=== PATIENT | male | born 1955 | race Caucasian/White ===

== ENCOUNTER → 2022-11-16 13:12 | Outpatient (CLI) | payer MEDICARE, SELFPAY ==
--- NOTE | 2022-11-16 | DI.RAD.S_ITS ---
PROCEDURE: XR LUMBAR SPINE 6V W BENDING INDICATIONS: Vertebrogenic low back pain TECHNIQUE: 5 views of the lumbar spine acquired, including flexion and extension views. COMPARISON: None. FINDINGS: Bones: 5 nonrib-bearing vertebrae are present. There is 7 mm retrolisthesis of L2 on L3, 5 mm retrolisthesis of L3 on L4 and 5 mm anterolisthesis of L4 on L5. Degenerative endplate changes, loss of disc height and bilateral facet hypertrophic changes are noted throughout lumbar spine. Chronic appearing superior endplate anterior wedge compression deformity at L1 level is seen containing a Schmorl's node. There is up to 25 % loss of L1 vertebral body height anteriorly. No suspicious bony lesions. Soft tissues: Overlying bowel gas pattern is normal. No suspicious soft tissue calcifications. Flexion/extension: There is decreased range of motion on lateral flexion and extension views with suggestion of abnormal motion noted at L4-5 level seen on lateral flexion and extension views. IMPRESSION: 1. Grade 1 spondylolisthesis at L2-3, L3-4 and L4-5 levels as above. Degenerative disc disease throughout lumbar spine. No acute compression fracture. Chronic appearing superior endplate compression deformity at L1 level as above. 2. Decreased range of motion on lateral flexion and extension views with suggestion of abnormal motion noted at L4-5 level. Dictated by: Oneil Villarreal M.D. on 11/16/2022 at 16:32 Approved by: Oneil Villarreal M.D. on 11/16/2022 at 16:34
== END ==
PROVIDERS: Referring Provider Family Medicine; Visit Provider Family Medicine
DX: M54.51 Vertebrogenic low back pain (principal); M43.16 Spondylolisthesis, lumbar region; M51.36 Other intervertebral disc degeneration, lumbar region
CPT/HCPCS: 72114

== ENCOUNTER → 2022-12-25 15:01 | Outpatient (CLI) | payer MEDICARE, SELFPAY ==
--- NOTE | 2022-12-25 | DI.ECHO.S_ITS ---
[facility] +---------+ : : [address] : : : : [id number] : : : : Phone: [phone] Echocardiogram Report + + :Name: RADHA CARTER Study Date: 12/25/2022 Height: 72 in : :[facility] ReadingLocation: Weight: 195 lb : : Gender: Male BSA: 2.1 m2 : :: 1955 Age: 67 yrs BP: 145/81 mmHg: :Reason For Study: Dyspnea : :Ordering Physician: VALERY, : :PARESH Jack Performed By: Erinn Monroe : :Referring: PARESH RASMUSSEN : + + Interpretation Summary The ejection fraction is estimated to be 60-65%. The right ventricle is mildly dilated. There is trace tricuspid regurgitation. Pulmonary artery pressures cannot be estimated because of the lack of a measurable TR jet velocity. Procedure: A two-dimensional transthoracic echocardiogram with color flow and Doppler was performed. The study quality was technically adequate. There is no prior echocardiogram noted for this patient. The patient was in normal sinus rhythm during the exam. Left Ventricle: The left ventricle is normal in size. The ejection fraction is estimated to be 60-65%. Left ventricular wall motion is normal. Diastolic parameters suggest a relaxation abnormality of the left ventricle, consistent with probable normal filling pressures. Right Ventricle: The right ventricle is mildly dilated. The right ventricular systolic function is normal. Atria: The left atrial size is normal. The right atrium is mild to moderately dilated. There is no Doppler evidence for an interatrial shunt. Mitral Valve: The mitral valve is normal. There is no mitral valve stenosis. There is no mitral regurgitation noted. Aortic Valve: The aortic valve is trileaflet. The aortic valve opens well. There is no aortic valve stenosis. No aortic regurgitation is present. Tricuspid Valve: The tricuspid valve is normal. There is no tricuspid stenosis. There is trace tricuspid regurgitation. Pulmonary artery pressures cannot be estimated because of the lack of a measurable TR jet velocity. Pulmonic Valve: The pulmonic valve leaflets are thin and pliable; valve motion is normal. There is no pulmonic valvular stenosis. There is no pulmonic valvular regurgitation. Great Vessels: The aortic root is normal size. The ascending aorta is normal in size. The pulmonary artery is normal size. The IVC is of normal diameter and collapses greater than 50% with a sniff. This suggests a low right atrial pressure of 3 mm Hg. Pericardium/ Pleura There is no pericardial effusion. There is no pleural effusion. MMode/2D Measurements & Calculations LVIDd: 5.1 cm LVOT diam: 2.0 cm LVIDs: 2.9 cm Ao root diam: 3.3 cm FS: 43.1 % asc Aorta Diam: 3.3 cm IVSd: 1.1 cm LVPWd: 1.0 cm LV delgado. diameter/BSA (cm/m^2): 2.4 LV sys. diameter/BSA (cm/m^2): 1.4 LA A2 area: 19.9 cm2 RA long axis: 5.4 cm LA A4 area: 18.7 cm2 RA area: 20.4 cm2 LA length (vol): 5.3 cm RA vol: 65.8 ml LA vol: 59.4 ml RA : 31.2 ml/m2 LA vol index: 28.2 ml/m2 RVD1 (basal): 4.8 cm LVLs ap4: 5.9 cm LVLd ap2: 7.5 cm TAPSE_phl: 3.6 cm LVLs ap2: 6.3 cm Doppler Measurements & Calculations Ao V2 max: 168.0 cm/sec LVOT Max Jalen: 131.0 cm/sec Ao V2 mean: 115.0 cm/sec LV V1 max P.9 mmHg Ao max P.0 mmHg LV V1 VTI: 24.8 cm Ao mean P.0 mmHg FORREST(I,D): 2.1 cm2 Ao V2 VTI: 37.0 cm FORREST(V,D): 2.4 cm2 sev ratio: 0.67 FORREST indexed to BSA (cm^2/m^2): 1.00 MV E max jalen: 77.6 cm/sec PA V2 max: 113.0 cm/sec MV A max jalen: 72.4 cm/sec PA V2 mean: 76.7 cm/sec MV E/A: 1.1 PA mean P.0 mmHg Med Peak E' Jalen: 8.7 cm/sec PA pr(Accel): 17.3 mmHg E/E' med: 8.9 Lat Peak E' Jalen: 10.1 cm/sec E/E' lat: 7.7 E/e' average: 8.3 MV dec time: 0.28 sec SV(LVOT): 77.9 ml AV VR_phl: 0.78 FORREST(VTI)/BSA_phl: 1.0 MV P1/2t-pr_phl: 82.0 msec Reading Physician:08:53 AM
== END ==
PROVIDERS: PCP Family Medicine; Referring Provider Family Medicine; Visit Provider Family Medicine
DX: R06.09 Other forms of dyspnea (principal)
CPT/HCPCS: 93306

== ENCOUNTER 2024-07-12 21:20 | Inpatient (IN) | payer MEDICARE, SELFPAY ==
[2024-07-12 21:29] VITALS: BP 142/79; PULSE 73; RESP 18; TEMP 36.3; O2SAT 97; BMI 27.1
--- NOTE | 2024-07-12 21:40 | DI.CT.S_ITS ---
PROCEDURE: CT HEAD/BRAIN WO CON INDICATIONS: Positive BE-FAST, Stroke symptoms TECHNIQUE: Noncontrast 4.5 mm thick angled axial sections acquired from the foramen magnum to the vertex, with coronal and sagittal reformats. For radiation dose reduction, the following was used: automated exposure control, adjustment of mA and/or kV according to patient size. COMPARISON: [facility], CT, CT ANGIO HEAD AND NECK, 07/12/2024, 21:50. FINDINGS: Image quality: Diagnostic. CSF spaces: Basal cisterns are patent. No extra-axial fluid collections. The ventricles are symmetric in size and shape. Brain: No intracranial bleeds or masses. There is cerebral volume loss for age, with resultant ventricular and sulcal prominence. There are periventricular and deep white matter chronic small vessel ischemic changes. There is intracranial internal carotid artery atherosclerosis. Skull and face: Calvarium and visualized facial bones appear intact, without suspicious lesions. Sinuses: Visualized sinuses and mastoids are clear. IMPRESSION: No acute intracranial pathology. Dictated by: Tulio Galvan M.D. on 07/12/2024 at 22:10 Approved by: Tulio Galvan M.D. on 07/12/2024 at 22:16
--- NOTE | 2024-07-12 21:40 | EKG_ITS ---
[facility] [address] [address] Test Date: 2024-07-12 Pat Name: Sergio Beck Department: [facility] Room: Gender: Male Web Application Developer: ALLI JIMENEZ : 1955 Requested By: Order Number: [id number] Reading MD: Pepe Byrnes MD Measurements Intervals [place] Rate: 70 P: -3 IL: 126 QRS: 82 QRSD: 96 T: 74 QT: 412 QTc: 444 Interpretive Statements Normal sinus rhythm Electronically Signed On 07-13-2024 7:41:03 PST by Pepe Byrnes MD
--- NOTE | 2024-07-12 21:40 | DI.RAD.S_ITS ---
PROCEDURE: XR CHEST 1V INDICATIONS: Possible stroke TECHNIQUE: One view of the chest was acquired. COMPARISON: None. FINDINGS: Surgical changes and devices: None. Lungs and pleura: Mild bibasilar subsegmental atelectasis.. No pleural effusions or pneumothorax. Mediastinum: Mediastinal contours appear normal. Heart size is normal. Bones and chest wall: No suspicious bony lesions. Overlying soft tissues appear unremarkable. IMPRESSION: Mild bibasilar subsegmental atelectasis. Otherwise, no acute cardiothoracic process. Dictated by: Tulio Galvan M.D. on 07/12/2024 at 22:41 Approved by: Tulio Galvan M.D. on 07/12/2024 at 22:41
--- NOTE | 2024-07-12 21:46 | DI.CT.S_ITS ---
PROCEDURE: CT ANGIO HEAD AND NECK INDICATIONS: trouble finding words 3 hours ago TECHNIQUE: After the administration of intravenous contrast, 1 mm thick sections acquired from the aortic arch through the [place]. 3-dimensional tymwgsb-mmochsxlc-yrbmuixszh (MIP) and/or volume rendering reformats were acquired of the central intracranial vasculature and neck separately. For radiation dose reduction, the following was used: automated exposure control, adjustment of mA and/or kV according to patient size. COMPARISON: None. FINDINGS: Image quality: Diagnostic. HEAD CT ANGIOGRAPHY: Anterior circulation: Intracranial internal carotid arteries are normal in size and flow. The flow within the paired anterior cerebral arteries is normal and symmetric. The flow within the middle cerebral arteries is normal and symmetric. The anterior communicating artery is seen. No aneurysms are seen. Posterior circulation: Visualized portions of the vertebral arteries demonstrate normal caliber, and join to form a normal appearing basilar artery. Flow within the posterior cerebral arteries is normal and symmetric. No aneurysms are seen. NECK CT ANGIOGRAPHY: Carotid system: The great vessels demonstrate a conventional anatomy as they arise from the aortic arch. The origins of the common carotid arteries appear patent. The common carotid arteries demonstrate normal caliber and courses. The bifurcation regions are both widely patent. The internal carotid arteries demonstrate normal calibers and courses. Posterior circulation: The origins of the vertebral arteries both appear widely patent. The more superior extracranial portions of both vertebral arteries also demonstrate normal courses and calibers. They join to form a normal appearing basilar artery. Soft tissues: Visualized neck soft tissues demonstrate no suspicious abnormalities. Mild centrilobular emphysema. Left upper lobe 1 cm calcified granuloma, likely secondary to prior granulomatous disease or infection. Bones: No suspicious bony lesions. Visualized cervical spine appears normally aligned. IMPRESSION: No large vessel occlusion, dissection, or aneurysm in the visualized head and neck arterial vasculature. 2 unsuccessful phone attempts were made to contact the ordering provider for result notification. Any quantitative measurements of stenosis were performed using NASCET criteria. Dictated by: Tulio Galvan M.D. on 07/12/2024 at 22:16 Approved by: Tulio Galvan M.D. on 07/12/2024 at 22:21
[2024-07-12 21:58] LABS: Add Manual Diff / Slide Review NO; Basophils Absolute Auto 0 /uL (0-100); Basophils Percent Auto 1.1 % (0-2); Eosinophils Absolute Auto 100 /uL (0-450); Hematocrit 38.6 % (41-53); Hemoglobin 13.9 g/dL (13.5-17.5); Lymphocytes Absolute Auto 1300 /uL (1100-4500); Lymphocytes Percent Auto 29.3 % (25-40); Mean Corpuscular HGB Conc 35.9 % (30-36); Mean Corpuscular Hemoglobin 34.1 PG (26-34); Mean Corpuscular Volume 95.1 fL (80-100); Monocytes Absolute Auto 400 /uL (0-900); Monocytes Percent Auto 9.7 % (3-14); Neutrophils Absolute Auto 2500 /uL (1500-7000); Neutrophils Percent Auto 57.9 % (50-75); Platelet Count 252 X10^3/uL (150-400); Red Blood Cell Count 4.06 X10^6/uL (4.5-5.9); Red Cell Distribution Width 13.2 % (11.6-14.8); White Blood Cell Count 4.3 X10^3/uL (4.5-11.0)
[2024-07-12 22:08] LABS: Prothrombin Time 11.2 SECONDS (9.4-12.5)
[2024-07-12 22:11] LABS: PTT Partial Thromboplastin Tim 37 SECONDS (25.1-36.5)
[2024-07-12 22:13] LABS: Alanine Aminotransferase 30 IU/L (<50); Albumin 4.3 g/dL (3.5-5.0); Albumin Globulin Ratio 1.8 (1.0-2.8); Alkaline Phosphatase 96 U/L (38-126); Aspartate Aminotransferase 28 IU/L (17-59); BUN Creatinine Ratio 22.7 (6-22); Bilirubin Total 0.6 mg/dL (0.2-1.3); Blood Urea Nitrogen 15 mg/dL (9-20); Calcium 9.2 mg/dL (8.4-10.2); Carbon Dioxide 24 mmol/L (22-32); Chloride 92 mmol/L (98-107); Creatine Kinase 86 U/L (55-170); Estimated Glomerular Filt Rate > 60 mL/min (>60); Globulin 2.4 g/dL (1.7-4.1); Glucose 170 mg/dL (80-110); HEMOLYSIS < 15 (0-50); Magnesium 1.5 mg/dL (1.6-2.3); Potassium 4.4 mmol/L (3.4-5.1); Sodium 125 mmol/L (137-145); Total Protein 6.7 g/dL (6.3-8.2)
--- NOTE | 2024-07-12 22:13 | PC.NURSE ---
Ambulatory to restroom without difficulty or assistance. Unable to provide urine sample at this time. Water provided and taking without difficulty for swallow screening.
[2024-07-12 22:24] LABS: Troponin I < 0.012 ng/mL (0.01-0.034)
[2024-07-12 22:29] VITALS: BP 138/82; PULSE 61; RESP 22; O2SAT 97
[2024-07-12 22:30] VITALS: BP 133/77; PULSE 60; RESP 19; O2SAT 97
[2024-07-12 23:00] VITALS: BP 126/75; PULSE 63; RESP 19; O2SAT 96
--- NOTE | 2024-07-12 23:16 | ED.NEUROSD ---
HPI - Neuro Symptoms/Deficit General Chief Complaint: Neuro Symptoms/Deficit Stated Complaint: symptoms like tia Time Seen by Provider: 07/12/24 22:36 Source: patient and family Mode of arrival: Ambulatory History of Present Illness HPI Narrative: 69-year-old male right-handed had suspected TIA 8 years ago with inability to read lasting about 15 minutes for which he was admitted overnight in [facility] and recalls being discharged on aspirin which was eventually discontinued, no blood thinner medications taken, last known well 6:00 p.m. last night with his when they were out to watch the sunset on [facility], he was looking at his phone and suddenly seemed to be unable to comprehend the meaning of the words, was able to speak, unable to read with comprehension problem, no visual blurring or double vision or spots in his field of vision. No focal numbness to face arm or leg. No focal weakness to face arm or leg. Symptoms were intermittent and lasted about 30 minutes and then resolved. They took the [place] here for further evaluation. No subsequent recurrent similar symptoms or new neurological symptoms. On Anticoagulants: No Related Data Allergies Allergy/AdvReac Type Severity Reaction Status Date / Time No Known Drug Allergies Allergy Verified 07/12/24 21:29 Review of Systems Hematologic/Lymphatic On Anticoagulants: No Patient History Social History Smoking Status: Never smoker Smoking Status: Never smoker Exam Narrative Exam Narrative: GENERAL: Well-developed patient, in mild distress. HEAD: Atraumatic. Normocephalic. EYES: Pupils equal round and reactive. Extraocular motions intact. No scleral icterus. No injection or drainage. ENT: Nose without bleeding, purulent drainage. Throat without erythema, tonsillar hypertrophy or exudate. Airway patent. NECK: Trachea midline. Non tender CARDIOVASCULAR: Regular rate and rhythm without murmurs, gallops, or rubs. RESPIRATORY: Clear to auscultation. Breath sounds equal bilaterally. No wheezes, rales, or rhonchi. GASTROINTESTINAL: Abdomen soft, non-tender, nondistended. EXTREMITIES: No edema or joint tenderness. BACK: Nontender without deformity or crepitance. No flank tenderness. NEURO: AOx3. Pupils equal round and reactive to light, extraocular muscles intact, no diplopia on vertical and horizontal buenrostro, no visual field deficits obvious. No facial droop. Speech swallow shoulder shrug unremarkable, extrudes and deviates tongue without difficulty. Motor 5/5 upper extremities. Motor 5/5 lower extremities. Light touch sensation intact to face arm and leg bilateral. DTRs patellar symmetrically decreased. [id number] testing normal bilateral. SKIN: No rash or erythema of visible areas Initial Vital Signs Initial Vital Signs: Vital Signs Temperature 97.4 F L 07/12/24 21:29 Pulse Rate 73 07/12/24 21:29 Respiratory Rate 18 07/12/24 21:29 Blood Pressure 142/79 H 07/12/24 21:29 Pulse Oximetry 97 07/12/24 21:29 Oxygen Delivery Method Room Air 07/12/24 21:29 Course Orders Ordered: ED Orders 07/12/24 21:40 CT head/brain wo con Stat XR chest 1V Stat EKG-12 Lead Stat 07/12/24 21:46 CT angio head and neck Stat 07/12/24 21:50 Complete Blood Count AUTO DIFF Stat Comprehensive Metabolic Panel Stat Magnesium Stat PTT Partial Thromboplastin [place] Stat Prothrombin Time INR Stat Troponin & CK Cardiac Panel Stat 07/12/24 23:33 Urine Drug Screen, Rapid Stat 07/13/24 MR head/brain wo con Routine 07/13/24 00:54 Consult to Occupational Therapy Evaluate & Treat Consult to Physical Therapy Evaluate & Treat 07/13/24 05:00 Basic Metabolic Panel DAILY Complete Blood Count AUTO DIFF DAILY Acetaminophen (Acetaminophen 325 Mg Tablet) 650 mg PO Q6H PRN PRN Reason: Fever/Mild Pain (1-3) Heparin Sodium (Porcine) (Heparin 5,000 Unit/Ml Vial) 5,000 unit SUBCUT BID [facility] Last Admin: 07/13/24 02:57 Dose: 5,000 unit Documented By: FM Sodium Chloride (Normal Saline 0.9%) 1,000 mls @ 75 mls/hr IV CONT [facility] Last Admin: 07/13/24 02:16 Dose: 75 mls/hr Documented By: FM Naloxone HCl (Naloxone 0.4 Mg/Ml Vial) 0.2 mg IV Q2MIN PRN PRN Reason: Opiate Reversal Ondansetron HCl (Ondansetron 4 Mg/2 Ml Inj) 4 mg IV NOW PRN PRN Reason: Nausea And Vomiting Ondansetron HCl (Ondansetron 4 Mg Odt) 4 mg SL NOW PRN PRN Reason: Nausea And Vomiting Ondansetron HCl (Ondansetron 4 Mg/2 Ml Inj) 4 mg IV Q8HR PRN PRN Reason: Nausea And Vomiting Discontinued Medications Aspirin (Aspirin 81 Mg Chew Tab) 324 mg PO NOW ONE Stop: 07/13/24 00:26 Last Admin: 07/13/24 00:32 Dose: 324 mg Documented By: MR Magnesium Sulfate (Magnesium Sulfate) 2 gm in 50 mls @ 150 mls/hr IV NOW ONE Stop: 07/13/24 00:44 Last Infusion: 07/13/24 02:31 Dose: Infused Documented By: SUZANNE Co-signed By: JAMES Admin: 07/13/24 00:34 Dose: 150 mls/hr Documented By: Co-signed By: PHILIP Vital Signs Vital signs: Vital Signs - 8 hr 07/12/24 21:29 07/12/24 22:29 07/12/24 22:29 Temperature 97.4 F L Pulse Rate 73 61 Respiratory Rate 18 22 Blood Pressure 142/79 H 138/82 Pulse Oximetry 97 97 Oxygen Delivery Method Room Air 07/12/24 22:30 07/12/24 22:30 07/12/24 23:00 Temperature Pulse Rate 60 63 Respiratory Rate 19 19 Blood Pressure 133/77 Pulse Oximetry 97 96 Oxygen Delivery Method 07/12/24 23:00 07/13/24 00:37 07/13/24 00:40 Temperature Pulse Rate 62 Respiratory Rate 15 Blood Pressure 126/75 124/75 Pulse Oximetry Oxygen Delivery Method 07/13/24 00:40 07/13/24 01:00 Temperature Pulse Rate 58 L 60 Respiratory Rate 10 L 12 Blood Pressure Pulse Oximetry 95 96 Oxygen Delivery Method MDM - Neuro Symptoms/Deficit Lab Data Attestation: I reviewed the patient's lab results. Lab results narrative: White blood cell count 4300, hemoglobin 13.9, platelets adequate. Glucose 170. BUN 15 with creatinine 0.66. Sodium 125, potassium 4.4, serum chloride 92, serum CO2 24. Magnesium 1.5 low. Troponin negative. Liver functions lipase normal. UDS positive for tricyclic antidepressant, patient takes doxepin, otherwise negative. 07/12/24 21:50 07/12/24 21:50 Labs: Lab Results 07/12/24 07/12/24 Range/Units 21:50 23:33 WBC 4.3 L (4.5-11.0) X10^3/uL RBC 4.06 L (4.5-5.9) X10^6/uL Hgb 13.9 (13.5-17.5) g/dL Hct 38.6 L (41-53) % MCV 95.1 (80-100) fL MCH 34.1 H (26-34) PG MCHC 35.9 (30-36) % RDW 13.2 (11.6-14.8) % Plt Count 252 (150-400) X10^3/uL Neut % (Auto) 57.9 (50-75) % Lymph % (Auto) 29.3 (25-40) % [place] % (Auto) 9.7 (3-14) % Eos % (Auto) 2.0 (2-4) % Baso % (Auto) 1.1 (0-2) % Neut # (Auto) 2500 (9057-0776) /uL Lymph # (Auto) 1300 (3715-9650) /uL [place] # (Auto) 400 (0-900) /uL Eos # (Auto) 100 (0-450) /uL Baso # (Auto) 0 (0-100) /uL PT 11.2 (9.4-12.5) SECONDS INR 1.0 (0.9-1.3) APTT 37 H (25.1-36.5) SECONDS Sodium 125 L (137-145) mmol/L Potassium 4.4 (3.4-5.1) mmol/L Chloride 92 L (98-107) mmol/L Carbon Dioxide 24 (22-32) mmol/L BUN 15 (9-20) mg/dL Creatinine 0.66 (0.66-1.25) mg/dL Estimated GFR > 60 (>60) mL/min BUN/Creatinine Ratio 22.7 H (6-22) Glucose 170 H (80-110) mg/dL Calcium 9.2 (8.4-10.2) mg/dL Magnesium 1.5 L (1.6-2.3) mg/dL Total Bilirubin 0.6 (0.2-1.3) mg/dL AST 28 (17-59) IU/L ALT 30 (<50) IU/L Alkaline Phosphatase 96 (38-126) U/L Total Creatine Kinase 86 (55-170) U/L Troponin I < 0.012 (0.01-0.034) ng/mL Total Protein 6.7 (6.3-8.2) g/dL Albumin 4.3 (3.5-5.0) g/dL Globulin 2.4 (1.7-4.1) g/dL Albumin/Globulin Ratio 1.8 (1.0-2.8) U Opiates 300ng/mL cut Negative (Negative) Ur Oxycodone Screen Negative (Negative) Urine Methadone Screen Negative (Negative) Ur Barbiturates Screen Negative (Negative) U Tricyclic Antidepress Positive H (Negative) Ur Phencyclidine Scrn Negative (Negative) Ur Amphetamines Screen Negative (Negative) U Methamphetamines Scrn Negative (Negative) Ur MDMA Scrn (Ecstasy) Negative (Negative) U Benzodiazepines Scrn Negative (Negative) Urine Cocaine Screen Negative (Negative) U Marijuana (THC) Screen Negative (Negative) Urine pH Normal (Normal) Urine Specific [place] Normal (Normal) Ur Creatinine Normal (Normal) Point of Care Testing Glucose POC 173 Urine Dip Bedside Urine Glucose Negative Bedside Urine Bilirubin - Negative Bedside Urine Ketone - Negative Urine Specific [place] 1.015 Bedside Urine Occult Blood - Negative Bedside Urine pH 6.0 Bedside Urine Protein - Negative Bedside Urine Urobilinogen - Negative Bedside Urine Nitrite - Negative Bedside Urine Leukocytes - Negative Esterase Imaging Data Chest x-ray: Radiologist's Impression: [address] [address] XRay Report Signed Patient: Sergio Beck MR#: [id number] : 1955 Acct:[id number] Age/Sex: 69 / M Date of Service: 07/12/24 Loc: ED Accession Number: [id number] Procedure: XR chest 1V Ordering Provider: Elvis Bangura MD PROCEDURE: XR CHEST 1V INDICATIONS: Possible stroke TECHNIQUE: One view of the chest was acquired. COMPARISON: None. FINDINGS: Surgical changes and devices: None. Lungs and pleura: Mild bibasilar subsegmental atelectasis.. No pleural effusions or pneumothorax. Mediastinum: Mediastinal contours appear normal. Heart size is normal. Bones and chest wall: No suspicious bony lesions. Overlying soft tissues appear unremarkable. IMPRESSION: Mild bibasilar subsegmental atelectasis. Otherwise, no acute cardiothoracic process. Dictated by: Tulio Galvan M.D. on 07/12/2024 at 22:41 Approved by: Tulio Galvan M.D. on 07/12/2024 at 22:41 CT scan - head: Radiologist's Impression: [address] [address] [address] Scan Report Signed Patient: Sergio Beck MR#: [id number] : 1955 Acct:[id number] Age/Sex: 69 / M Date of Service: 07/12/24 Loc: ED Accession Number: [id number] Procedure: CT head/brain wo con Ordering Provider: Elvis Bangura MD PROCEDURE: CT HEAD/BRAIN WO CON INDICATIONS: Positive BE-FAST, Stroke symptoms TECHNIQUE: Noncontrast 4.5 mm thick angled axial sections acquired from the foramen magnum to the vertex, with coronal and sagittal reformats. For radiation dose reduction, the following was used: automated exposure control, adjustment of mA and/or kV according to patient size. COMPARISON: [facility], CT, CT ANGIO HEAD AND NECK, 07/12/2024, 21:50. FINDINGS: Image quality: Diagnostic. CSF spaces: Basal cisterns are patent. No extra-axial fluid collections. The ventricles are symmetric in size and shape. Brain: No intracranial bleeds or masses. There is cerebral volume loss for age, with resultant ventricular and sulcal prominence. There are periventricular and deep white matter chronic small vessel ischemic changes. There is intracranial internal carotid artery atherosclerosis. Skull and face: Calvarium and visualized facial bones appear intact, without suspicious lesions. Sinuses: Visualized sinuses and mastoids are clear. IMPRESSION: No acute intracranial pathology. Dictated by: Tulio Galvan M.D. on 07/12/2024 at 22:10 Approved by: Tulio Galvan M.D. on 07/12/2024 at 22:16 CTA - brain/neck: Radiologist's Impression: [address] [address] [address] Scan Report Signed Patient: Sergio Beck MR#: [id number] : 1955 Acct:[id number] Age/Sex: 69 / M Date of Service: 07/12/24 Loc: ED Accession Number: [id number] Procedure: CT angio head and neck Ordering Provider: Elvis Bangura MD PROCEDURE: CT ANGIO HEAD AND NECK INDICATIONS: trouble finding words 3 hours ago TECHNIQUE: After the administration of intravenous contrast, 1 mm thick sections acquired from the aortic arch through the [place] of [place]. 3-dimensional kpwgwwn-uehcfwhpy-zhqbdaqyof (MIP) and/or volume rendering reformats were acquired of the central intracranial vasculature and neck separately. For radiation dose reduction, the following was used: automated exposure control, adjustment of mA and/or kV according to patient size. COMPARISON: None. FINDINGS: Image quality: Diagnostic. HEAD CT ANGIOGRAPHY: Anterior circulation: Intracranial internal carotid arteries are normal in size and flow. The flow within the paired anterior cerebral arteries is normal and symmetric. The flow within the middle cerebral arteries is normal and symmetric. The anterior communicating artery is seen. No aneurysms are seen. Posterior circulation: Visualized portions of the vertebral arteries demonstrate normal caliber, and join to form a normal appearing basilar artery. Flow within the posterior cerebral arteries is normal and symmetric. No aneurysms are seen. NECK CT ANGIOGRAPHY: Carotid system: The great vessels demonstrate a conventional anatomy as they arise from the aortic arch. The origins of the common carotid arteries appear patent. The common carotid arteries demonstrate normal caliber and courses. The bifurcation regions are both widely patent. The internal carotid arteries demonstrate normal calibers and courses. Posterior circulation: The origins of the vertebral arteries both appear widely patent. The more superior extracranial portions of both vertebral arteries also demonstrate normal courses and calibers. They join to form a normal appearing basilar artery. Soft tissues: Visualized neck soft tissues demonstrate no suspicious abnormalities. Mild centrilobular emphysema. Left upper lobe 1 cm calcified granuloma, likely secondary to prior granulomatous disease or infection. Bones: No suspicious bony lesions. Visualized cervical spine appears normally aligned. IMPRESSION: No large vessel occlusion, dissection, or aneurysm in the visualized head and neck arterial vasculature. 2 unsuccessful phone attempts were made to contact the ordering provider for result notification. Any quantitative measurements of stenosis were performed using NASCET criteria. Dictated by: Tulio Galvan M.D. on 07/12/2024 at 22:16 Approved by: Tulio Galvan M.D. on 07/12/2024 at 22:21 ECG Data Interpretation: 2145, Normal sinus rhythm with rate of 70, no obvious ST segment elevation or depression changes. Movement artifact noted. IA 126, QRS 96, QTC 444. 0154, normal sinus rhythm with rate of 60, no obvious ST segment elevation or depression changes. IA 162, QRS 104, QTC 422. MDM Narrative Medical decision making narrative: 69-year-old male with history of suspected TIA years ago in [place] was taking aspirin for some period of time thereafter but then discontinued, no blood thinners or antiplatelet therapies, tonight 6:00 p.m. was at sunset with his but he was looking at his phone, suddenly became unable to comprehend the words on his phone, did not have blurred vision or double vision or scotomata, but seemed to be unable to process the written words he was reading, intermittently for about 30 seconds, then resolved. This happened in his home area [facility], they drove POV here for further evaluation. No subsequent neuro symptoms. EKG sinus rhythm without obvious ischemic changes. Troponin negative. Chest x-ray showed bibasilar atelectasis, no acute changes, see radiology report. CT head noncontrast study, no acute changes. See radiology report. CT angiogram head and neck vessels, no thromboses or significant narrowing. See radiology report. Sodium low 125, patient reports he has had low sodium in the past. Magnesium 1.5 mildly low, IV magnesium ordered. Electrolyte disturbances did not seem to be accountable for his transient visual reading comprehension problem symptoms. Consider TIA, consider admission for further workup such as brain MRI when available tomorrow morning, telemetry overnight, echocardiogram, fasting lipid panel. We will contact hospitalist Hospitalist Dr Young accepts patient for admission Critical Care Time Critical Care Time Critical Care Time: Yes Total Critical Care Time: 35 Attestation: The high probability of a clinically significant, sudden or life threatening deterioration of the [neurologic, cerebrovascular] system(s) required my full and direct attention, intervention and personal management. The aggregate critical care time was [35] minutes. This time is in addition to time spent performing reported procedures but includes the following: [x] Data Review and interpretation [x] Patient assessment and monitoring of vital signs [x] Documentation [x] Medication orders and management Discharge Plan Departure Patient Disposition: Admitted as Observation Clinical Impression: Transient ischemic attack (TIA), Hypomagnesemia, Hyponatremia Admit Date/Time: 07/13/24 01:08 Admit Provider: Erik Young
--- NOTE | 2024-07-12 23:23 | PC.NURSE ---
Patient ambulatory to the bathroom to collect a urine sample
[2024-07-12 23:53] LABS: Ur Creatinine Normal (Normal); Ur Specific Gravity Normal (Normal); Urine Amphetamines Negative (Negative); Urine Barbiturates Negative (Negative); Urine Benzodiazepines Negative (Negative); Urine Cocaine Negative (Negative); Urine MDMA Negative (Negative); Urine Methadone Negative (Negative); Urine Methamphetamines Negative (Negative); Urine Opiates Negative (Negative); Urine Oxycodone Negative (Negative); Urine Phencyclidine Negative (Negative); Urine THC Negative (Negative); Urine Tricyclic Antidepressant Positive (Negative); Urine pH Normal (Normal)
[2024-07-13] VITALS (11 sets, daily range): BP systolic 117–143; BP diastolic 73–86; PULSE 55–77; RESP 10–18; TEMP 36.1–36.7; O2SAT 94–98; BMI 27.1
--- NOTE | 2024-07-13 | DI.MRI.S_ITS ---
PROCEDURE: MR HEAD/BRAIN WO CON INDICATIONS: rule out cva TECHNIQUE: Noncontrast axial T1 spin echo, axial T2 fast spin echo, sagittal and axial FLAIR, coronal T2 fast spin echo, axial gradient echo, axial diffusion and ADC through the brain. COMPARISON: [facility], CT, CT HEAD/BRAIN WO CON, 07/12/2024, 21:43. FINDINGS: Image quality: Excellent. CSF Spaces: Basal cisterns are patent. No extra-axial fluid collections. Ventricles are normal in size and shape. Brain: No intracranial masses or hemorrhage. [place]/white matter interface is normal. Brainstem appears normal. Diffusion-weighted images demonstrate no acute infarct. No chronic ischemic insults. Normal intravascular flow voids are present. Skull and face: Calvarium has normal marrow signal. Orbits appear normal. Sinuses: Sinuses and mastoids are clear. IMPRESSION: Negative brain MRI. No acute intracranial process identified. Dictated by: Barry Hubbard M.D. on 07/13/2024 at 10:56 Approved by: Barry Hubbard M.D. on 07/13/2024 at 10:59
[2024-07-13] MEDS: ASPIRIN 81 MG CHEW TAB 324 MG PO (00:32)
[2024-07-13] MEDS: MAGNESIUM SULFATE 2 GM/50 ML PIGGYBACK IV (00:34)
--- NOTE | 2024-07-13 01:54 | EKG_ITS ---
[address] [address] [address] [place] [address] Test Date: 2024-07-13 Pat Name: Sergio Beck Department: Room: 229 Gender: Male Telephone Assembler: ALLI TONY : 1955 Requested By: Order Number: [id number] Reading MD: Pepe Byrnes MD Measurements Intervals Allen Rate: 60 P: 16 IN: 162 QRS: 84 QRSD: 104 T: 92 QT: 422 QTc: 422 Interpretive Statements Normal sinus rhythm Electronically Signed On 07-13-2024 7:41:04 PST by Pepe Byrnes MD
[2024-07-13] MEDS: SODIUM CHLORIDE 0.9% 1,000 ML 75 ML IV (02:16)
[2024-07-13] MEDS: HEPARIN 5,000 UNIT/ML VIAL 5000 UNIT SUBCUT ×2 (02:57→11:02)
[2024-07-13 04:37] LABS: BUN Creatinine Ratio 20.9 (6-22); Blood Urea Nitrogen 14 mg/dL (9-20); Calcium 8.8 mg/dL (8.4-10.2); Carbon Dioxide 23 mmol/L (22-32); Chloride 94 mmol/L (98-107); Estimated Glomerular Filt Rate > 60 mL/min (>60); Glucose 112 mg/dL (80-110); HEMOLYSIS < 15 (0-50); Potassium 3.7 mmol/L (3.4-5.1); Sodium 124 mmol/L (137-145)
[2024-07-13 04:57] LABS: Add Manual Diff / Slide Review NO; Basophils Absolute Auto 0 /uL (0-100); Basophils Percent Auto 0.8 % (0-2); Eosinophils Absolute Auto 100 /uL (0-450); Eosinophils Percent Auto 3.4 % (2-4); Hematocrit 38.4 % (41-53); Hemoglobin 13.7 g/dL (13.5-17.5); Lymphocytes Absolute Auto 1200 /uL (1100-4500); Lymphocytes Percent Auto 35.9 % (25-40); Mean Corpuscular HGB Conc 35.6 % (30-36); Mean Corpuscular Hemoglobin 33.6 PG (26-34); Mean Corpuscular Volume 94.6 fL (80-100); Monocytes Absolute Auto 400 /uL (0-900); Monocytes Percent Auto 12.4 % (3-14); Neutrophils Absolute Auto 1600 /uL (1500-7000); Neutrophils Percent Auto 47.5 % (50-75); Platelet Count 235 X10^3/uL (150-400); Red Blood Cell Count 4.06 X10^6/uL (4.5-5.9); White Blood Cell Count 3.5 X10^3/uL (4.5-11.0)
[2024-07-13 05:42] LABS: MRSA (Nasal) PCR NOT DETECTED (Not Detect)
--- NOTE | 2024-07-13 06:59 | P.HP_ITS ---
History of Present Illness History of Present Illness Chief complaint: symptoms like tia Narrative: 69-year-old male with past medical history of TIA about 8 years ago presents with concern for strokelike symptoms. Of note around 6 PM today the patient started to notice that he could not comprehend the meaning of the words on his phone. The patient was trying to read the text on his phone but could not understand what was written. The patient however denies any focal weakness or changes in sensation. Denies any facial drooping or slurred speech. This lasted about 30 minutes and resolve on its own. Of note, patient states that about 8 years ago, the patient had exact same symptoms but only lasted 15 minutes then. The patient was concerned and brought himself to the ER for further evaluation. Otherwise the patient denies any fever, chills, nausea, vomiting, diarrhea, chest pain or shortness of breath. In our emergency room, the patient was hemodynamically stable. Labs were relatively benign. CT with and without contrast of the head and neck shows no acute finding. Due to his concern for underlying stroke however ER physician requested admission to observation and obtain a brain MRI in the morning. PFSH Social History household members: spouse Smoking Status: Never smoker Meds Home Medications and Allergies Allergies Allergy/AdvReac Type Severity Reaction Status Date / Time No Known Drug Allergies Allergy Verified 07/12/24 21:29 Review of Systems Review of Systems ROS: Yes All systems reviewed with the patient and are negative except as otherwise documented Exam Vital Signs (past 8 hours): - 07/12/24 23:00 07/12/24 23:00 07/13/24 00:37 Temperature Pulse Rate 63 62 Respiratory Rate 19 15 Blood Pressure 126/75 Pulse Oximetry 96 Oxygen Delivery Method Oxygen Flow Rate 07/13/24 00:40 07/13/24 00:40 07/13/24 01:00 Temperature Pulse Rate 58 L 60 Respiratory Rate 10 L 12 Blood Pressure 124/75 Pulse Oximetry 95 96 Oxygen Delivery Method Oxygen Flow Rate 07/13/24 01:30 07/13/24 01:54 07/13/24 02:28 Temperature 97.1 F L Pulse Rate 55 L 56 L Respiratory Rate 18 17 Blood Pressure 124/75 143/78 H Pulse Oximetry 94 97 Oxygen Delivery Method Room Air Oxygen Flow Rate 0 07/13/24 04:00 Temperature 97.0 F L Pulse Rate 55 L Respiratory Rate 16 Blood Pressure 128/76 Pulse Oximetry 96 Oxygen Delivery Method Oxygen Flow Rate 0 Oxygen Delivery Method Room Air Oxygen Flow Rate 0 Narrative Exam Narrative: Physical Exam: GENERAL: The patient is not in any acute distressed. Awake and alert. HEENT: Nonicteric sclerae, PERRLA, EOMI. Oropharynx clear. Moist mucous membranes. Conjunctivae appear well perfused. HEART: Regular rate and rhythm without murmurs. No lower extremities edema. LUNGS: Clear to auscultation bilaterally. No wheezing, crackles or rhonchi ABDOMEN: Soft, positive bowel sounds, nontender. SKIN: No rash, no excessive bruising, petechiae, or purpura. NEUROLOGIC: AxO x 3. Cranial nerves II-XII intact without motor/sensory deficit. Objective Labs 07/13/24 03:20 07/13/24 03:20 Labs: Laboratory Results - last 24 hr 07/12/24 07/12/24 07/13/24 21:50 23:33 02:20 WBC 4.3 L RBC 4.06 L Hgb 13.9 Hct 38.6 L MCV 95.1 MCH 34.1 H MCHC 35.9 RDW 13.2 Plt Count 252 Neut % (Auto) 57.9 Lymph % (Auto) 29.3 [place] % (Auto) 9.7 Eos % (Auto) 2.0 Baso % (Auto) 1.1 Neut # (Auto) 2500 Lymph # (Auto) 1300 [place] # (Auto) 400 Eos # (Auto) 100 Baso # (Auto) 0 PT 11.2 INR 1.0 APTT 37 H Sodium 125 L Potassium 4.4 Chloride 92 L Carbon Dioxide 24 BUN 15 Creatinine 0.66 Estimated GFR > 60 BUN/Creatinine Ratio 22.7 H Glucose 170 H Calcium 9.2 Magnesium 1.5 L Total Bilirubin 0.6 AST 28 ALT 30 Alkaline Phosphatase 96 Total Creatine Kinase 86 Troponin I < 0.012 Total Protein 6.7 Albumin 4.3 Globulin 2.4 Albumin/Globulin Ratio 1.8 Nasal Screen MRSA (PCR) Not detected U Opiates 300ng/mL cut Negative Ur Oxycodone Screen Negative Urine Methadone Screen Negative Ur Barbiturates Screen Negative U Tricyclic Antidepress Positive H Ur Phencyclidine Scrn Negative Ur Amphetamines Screen Negative U Methamphetamines Scrn Negative Ur MDMA Scrn (Ecstasy) Negative U Benzodiazepines Scrn Negative Urine Cocaine Screen Negative U Marijuana (THC) Screen Negative Urine pH Normal Urine Specific [place] Normal Ur Creatinine Normal 07/13/24 03:20 WBC 3.5 L RBC 4.06 L Hgb 13.7 Hct 38.4 L MCV 94.6 MCH 33.6 MCHC 35.6 RDW 13.0 Plt Count 235 Neut % (Auto) 47.5 L Lymph % (Auto) 35.9 [place] % (Auto) 12.4 Eos % (Auto) 3.4 Baso % (Auto) 0.8 Neut # (Auto) 1600 Lymph # (Auto) 1200 [place] # (Auto) 400 Eos # (Auto) 100 Baso # (Auto) 0 PT INR APTT Sodium 124 L Potassium 3.7 Chloride 94 L Carbon Dioxide 23 BUN 14 Creatinine 0.67 Estimated GFR > 60 BUN/Creatinine Ratio 20.9 Glucose 112 H Calcium 8.8 Magnesium Total Bilirubin AST ALT Alkaline Phosphatase Total Creatine Kinase Troponin I Total Protein Albumin Globulin Albumin/Globulin Ratio Nasal Screen MRSA (PCR) U Opiates 300ng/mL cut Ur Oxycodone Screen Urine Methadone Screen Ur Barbiturates Screen U Tricyclic Antidepress Ur Phencyclidine Scrn Ur Amphetamines Screen U Methamphetamines Scrn Ur MDMA Scrn (Ecstasy) U Benzodiazepines Scrn Urine Cocaine Screen U Marijuana (THC) Screen Urine pH Urine Specific [place] Ur Creatinine Assessment & Plan Assessment & Plan narrative: Strokelike symptoms with receptive aphasia. Admit the patient to medical telemetry under observation. Of note the patient is nonfocal on exam at this time. Patient is also asymptomatic. Continue PT/OT/ ST. Will get MRI of the brain in the morning. Monitor for any neurochanges. Check CT lipid panel and A1c. Continue aspirin. Hypomagnesemia. Replace and monitor. Mg level 1.5 in ER. DVT prophylaxis heparin subcu. CODE STATUS full code. Disposition likely home in 1 to 2 days. Time-Based Coding :: [TOTAL MINUTES] spent with patient and on the chart (including review of chart, obtaining history, exam, reviewing outside data, placing orders, documenting exam and treatment plan, and counseling patient) on [DATE]. Quality VTE Deep Vein Thrombosis/Pulmonary Embolism Present on Admission: No
[2024-07-13 07:20] LABS: Cholesterol 163 mg/dL (140-199); HDL Cholesterol 70 mg/dL (40-60); LDL Cholesterol Calculated 75 mg/dL (<100); Triglycerides 91 mg/dL (35-150)
[2024-07-13 07:26] LABS: Hemoglobin A1C% w Est Avg Glu 5.5 % (4.0-6.0)
--- NOTE | 2024-07-13 08:53 | PT.IIE ---
Physical Therapy Inpatient Evaluation/Re-Eval M1 PT/OT-IP Prior Functional Status Start: 07/13/24 07:54 Freq: NEEDED Status: Active Protocol: Document 07/13/24 08:17 MB (Rec: 07/13/24 08:53 MB [id number]) Medical Review Prior Functional Status Medical History Reviewed Yes Diet/Fluid Consistency Regular Communication WNLs Mobility and Gait I Activities of Daily Living and IADL's I Social History Household Members spouse Living Arrangements House Number of Floors (Floors) Two Floors Number of Stairs To Enter/Railing? 2 steps with left rail to enter and 16 steps with left rail inside Home Environment Standard Height Toilet,Walk in Shower Home Equipment Hand Held Shower Employment Status Retired M2 PT-IP Current Condition Start: 07/13/24 07:54 Freq: NEEDED Status: Active Protocol: Document 07/13/24 08:17 MB (Rec: 07/13/24 08:53 MB [id number]) Physical Therapy Current Condition Current Condition Evaluation Date 07/13/24 Treatment Diagnosis TIA symptoms and hyponatremia M3 PT-IP Subjective Start: 07/13/24 07:54 Freq: NEEDED Status: Active Protocol: Document 07/13/24 08:17 MB (Rec: 07/13/24 08:53 MB [id number]) Subjective Physical Therapy Visit Type Type Initial Evaluation Visit Start Time 08:17 Visit Stop Time 08:40 Number of NEGATIVE STRIPPER Visits 0 Physical Therapy Visit Comments Patient Comments Pt is feeling better. Therapy Pain Assessment Pain When Pain Assessed At Rest Pain Present Pain Present Denied Pain M4 PT-IP Mobility and Gait Start: 07/13/24 07:54 Freq: NEEDED Status: Active Protocol: Document 07/13/24 08:17 MB (Rec: 07/13/24 08:53 MB [id number]) PT-Bed Mobility Assessment Rolling Type of Rolling Roll to Left Level of Assist Independent Supine to Sit Supine to Sit Independent Scooting Scooting to Edge of Bed Independent Scooting Up and Down in Bed Independent PT-Transfer Assessment Sit to and From Stand Sit to and from Stand Independent Equipment Transfer Assistive Device Gait Belt Orthotic/Prosthetic Devices or Brace: No Transfers Transfer Destination Chair,Toilet Transfer Ability Level of Assist Independent Comments Mobility Comments No light-headedness with mobility Gait Assessment Gait Gait Assistance Required: Independent Distance (Feet) 300 Able to Maintain Weight Bearing Status Yes During Gait Assistive Devices Assistive Device Gait Belt Orthotic/Prosthetic Devices or Brace: No Gait Deviations General Gait Pattern Within Normal Limits Comments Gait Comments Forward walking changing gait speeds and walking with eyes closed all normal and PT manages IV pole Stair Climbing Assessment Evaluation Level of Assist On Stairs Independent Devices Stair Climbing Assistive Devices Left Railing Technique/Endurance Stair Climbing Direction Ascend and Descend Stair Climbing Technique Step Over Step Number of Steps Climbed 3 Query Text: Stair Climbing Set # Repetitions (reps) 1 PT-Balance Assessment Sitting Balance and Reactions Static Sitting Balance Ability Normal Dynamic Sitting Balance Ability Normal Standing Balance and Reactions Static Standing Balance Ability Normal Dynamic Standing Balance Ability Normal M5 PT-IP Objective Assessments Start: 07/13/24 07:54 Freq: NEEDED Status: Active Protocol: Document 07/13/24 08:17 MB (Rec: 07/13/24 08:53 MB [id number]) Orientation Orientation/Cognition Level of Alertness Alert Orientation Name,Birthday Safety Awareness Understands Safety Issues Memory Description No Deficits Noted Gross Range of Motion Upper Extremity ROM Impairments Defer to OT Lower Extremity ROM Assessment Within Functional Limits Strength Lower Extremity Strength Assessment Within Functional Limits Coordination Assessment Gross Coordination Gross Coordination WNL Assessment Foot Tapping Test Normal Performance Heel on Marie Test Normal Performance Sensation Assessment Sensation Gross Sensation WNL Muscle Tone Muscle Tone WNL Yes M7 PT-IP Assessment and Plan Start: 07/13/24 07:54 Freq: NEEDED Status: Active Protocol: Document 07/13/24 08:17 MB (Rec: 07/13/24 08:53 MB [id number]) PT Summary Assessment and Plan Potential Rehabilitation Potential Excellent Status of Condition at Evaluation Evolving Summary Progress Towards Goals Safe For Discharge Assessment Summary Pt is a 69 y/o male adm with sxs of TIA and hyponatremia. Pt presents wit I mobility and normal LE sensation, cooridnation and MMT. He gait trains over 300' and ascends and descends 3 steps with left rail and shorter IV line is only limiter with number of reps of steps and further gait and balance testing. No further acute PT needs. Will d /c PT. Frequency of Treatment Frequency Of Treatment Discharge Recommendations To Nursing Amount of Assist Needed Standby Assistance Discharge Recommendations PT Discharge Recommendations Home with Assistance Transportation Needs at Discharge Private Vehicle
--- NOTE | 2024-07-13 09:15 | OT.IP.EVAL ---
Occupational Therapy Inpatient Evaluation/Re-Eval M1 PT/OT-IP Prior Functional Status Start: 07/13/24 07:54 Freq: NEEDED Status: Active Protocol: Document 07/13/24 10:33 [facility] (Rec: 07/13/24 10:46 [facility] [id number]) Medical Review Prior Functional Status Medical History Reviewed Yes Diet/Fluid Consistency Regular Communication WNLs Mobility and Gait I Activities of Daily Living and IADL's I Social History Household Members spouse Living Arrangements House Number of Floors (Floors) Two Floors Number of Stairs To Enter/Railing? 2 steps with left rail to enter and 16 steps with left rail inside Home Environment Standard Height Toilet,Walk in Shower Home Equipment Hand Held Shower Employment Status Retired M2 OT-IP Current Condition Start: 07/13/24 10:32 Freq: Status: Active Protocol: Document 07/13/24 10:33 [facility] (Rec: 07/13/24 10:46 [facility] [id number]) Occupational Therapy Current Condition Current Condition Evaluation Date 07/13/24 Treatment Diagnosis TIA symptoms,hypoatremia Diagnosis Onset Date 07/13/24 M3 OT- IP Subjective and Pain Start: 07/13/24 10:32 Freq: Status: Active Protocol: Document 07/13/24 10:33 [facility] (Rec: 07/13/24 10:46 [facility] [id number]) OT- Subjective Occupational Therapy Visit Type Type Initial Evaluation Visit Start Time 08:45 Visit Stop Time 09:15 Occupational Therapy Visit Comments Patient Comments Pt agreed to work with OT. Patient/Caregiver Goals TO go home. OT Pain Assessment Pain When Pain Assessed At Rest Pain Present Pain Present Denied Pain M4 OT- IP ADL's Start: 07/13/24 10:32 Freq: Status: Active Protocol: Document 07/13/24 10:33 [facility] (Rec: 07/13/24 10:46 [facility] [id number]) OT DSG-Yidl-Ajxfukb General Evaluation Self-Feeding Ability Independent OT ADL-Grooming General Evaluation Grooming Ability Independent OT ADL-Oral Care General Eval Oral Care Ability Independent OT ADL-Dressing General Eval Lower Body Dressing Ability Standby Assistance Comments OT Dressing Comments Close SBA when pt able to palak /doff socks while standing. OT ADL-Toileting Comments OT Toileting Comments Pt states has been doing on his own in the room. OT ADL-Bathing Comments OT Bathing Comments Suggested to have his present when showering. M5 OT- IP IADL's Start: 07/13/24 10:32 Freq: Status: Active Protocol: Document 07/13/24 10:33 [facility] (Rec: 07/13/24 10:46 [facility] [id number]) OT-Instrumental Activities of Daily Living Home Safety Awareness Awareness of Need for Assistance at Home Good Awareness Ability to Problem Solve Emergency Able to Problem Solve Situations Medication Management Medication Management Comments Pt uses a pill box. Money Management Money Management Comments Pt's states to provide supervision as needed. Meal Preparation Meal Preparation Comments Pt's to assist as needed. Slip Filler Slip Filler Comments Pt's to assist as needed. Driving Driving Concerns Identified Regarding Safety M6 OT- IP Functional Cognition Start: 07/13/24 10:32 Freq: Status: Active Protocol: Document 07/13/24 10:33 [facility] (Rec: 07/13/24 10:46 [facility] [id number]) Cognitive Factors Limiting Selfcare Function Cognitive Ability Level of Alertness Alert Patient Orientation Name,Age,Birthday,Month,Date, Year,Day of Week,Place, Situation Attention Span Ability Capable of Focused Attention, Capable of Sustained Attention Ability to Follow Commands Able to Follow Multi-Step Commands Memory Description Working Impaired Safety Awareness No Deficits Noted Problem Solving Ability No deficits Noted Cognitive Comments Cognitive Assessment Comments Pt scored 162 seconds on [place] Making Part B which implies severe impairments for visual attention, speed of processing , mental flexibility, executive functioning, and task switching. Pt score probably affected per pt lack of sleep and having hypoatremia. Pt is aware not to drive at this time. Pt is a little slow to problem solve and come up with answers. Per pt's insists that he takes awhile to wake up in the mornings. OT- Vision and Hearing OT- Hearing Assessment OT- Hearing Assessment WFL OT- Vision Assessment Visual Acuity Glasses For Reading Visual Attentiveness WFL Occular Pursuits WFL Visual Convergence WFL Visual [place] WFL M7 OT- IP Mobility and Balance Start: 07/13/24 10:32 Freq: Status: Active Protocol: Document 07/13/24 10:33 [facility] (Rec: 07/13/24 10:46 [facility] [id number]) OT-Transfer Assessment Sit to and From Stand Sit to and from Stand Independent Transfers Transfer Ability Independent Technique Transfer Destination Chair Comments Mobility Comments Pt is independent with no device in the room. OT- Balance Assessment Sitting Balance and Reactions Static Sitting Balance Ability Normal Dynamic Sitting Balance Ability Normal Standing Balance and Reactions Static Standing Balance Ability Normal Dynamic Standing Balance Ability Good M8 OT- IP Objective Assessments Start: 07/13/24 10:32 Freq: Status: Active Protocol: Document 07/13/24 10:33 [facility] (Rec: 07/13/24 10:46 [facility] [id number]) OT Gross Range of Motion Upper Extremity Range of Motion Assessment Within Functional Limits OT Strength Upper Extremity Strength Assessment Within Functional Limits Comments Strength Comments 5/5 BUE OT- Coordination Assessment Upper Extremity Finger to Nose Test Within Functional Limits Comments Coordination Comments RUE 24 sec and LUE 27 sec both score approx 50th percentile for his age. OT-Muscle Tone Assessment Muscle Tone WNL Yes M9 OT- IP Assessment and Plan Start: 07/13/24 10:32 Freq: Status: Active Protocol: Document 07/13/24 10:33 [facility] (Rec: 07/13/24 10:46 [facility] [id number]) OT Summary Assessment and Plan Potential Rehabilitation Potential Excellent Analytic Complexity at Evaluation Low Summary OT Impairments Functional Cognition Progress Towards Goals Progressing Toward Goals,Safe For Discharge Assessment Summary Pt here due to TIA and main barrier is needing increased time for thinking and problem solving at this time. Pt feels this due to lack of sleep and pt also having low NA numbers which may also be attributing to slowness of his mentation. Pt's is well aware to be able to assist pt as needed. Pt to go home with when medically stable and no OT needs at this time. Frequency of Treatment Frequency Of Treatment Discharge Discharge Recommendations Home Equipment Needs shower chair? Transportation Needs at Discharge Private Vehicle
[2024-07-13 10:35] LABS: Sodium Urine Random 42 mmol/L (30-90)
[2024-07-13] MEDS: ASPIRIN EC 81 MG TABLET PO (11:02)
[2024-07-13 11:41] LABS: BUN Creatinine Ratio 19.4 (6-22); Blood Urea Nitrogen 12 mg/dL (9-20); Calcium 9.1 mg/dL (8.4-10.2); Carbon Dioxide 23 mmol/L (22-32); Chloride 94 mmol/L (98-107); Estimated Glomerular Filt Rate > 60 mL/min (>60); Glucose 130 mg/dL (80-110); HEMOLYSIS < 15 (0-50); Potassium 4.8 mmol/L (3.4-5.1); Sodium 125 mmol/L (137-145)
--- NOTE | 2024-07-13 11:48 | CM.DANOTE ---
Initial DCP Assessment Visit Note Reviewed EMR and team rounds for status updates. Met with pt and spouse at bedside to introduce self and role, pt was found to be alert/oriented, sitting reading in the recliner. He lives independently at baseline in his own home with his on [address]. This PRESS MA[employer]ER did provide them with a Medical Priority Boarding Pass, per their request. Pt's will transport home later this afternoon if pt's sodium levels are stable for d/c. Payor: Medicare PCP: Dr. Sharri Gold Pt is a 69 year-old M with a hx of TIA 8-years ago, presented to the ED last evening after he and his were out watching the sunset together, and he suddenly could not comprehend what he was seeing on his phone, nor could he read. He had no other neuro or physical symptoms with this event, which lasted about 30-minutes. CT imaging and Brain MRI were negative for stroke, however a TIA was suspected. Pt was also found to be hyponatremic. Plan was made to admit pt for the Brain MRI (already completed), monitoring, and treatment to raise his sodium levels. Current labs are pending at this time. DCP will continue to follow for any further evolving needs, however non are anticipated at this time. Discharge Planning/Care Management CM Discharge Assessment Start: 07/13/24 11:44 Freq: Status: Active Protocol: Document 07/13/24 11:45 DPL (Rec: 07/13/24 11:48 DPL [id number]) Discharge Planning Assessment Assigned Talent Development Director DALIA Sanchez Advance Directives? No History Provided By Patient,Family Member,Medical Record Has Patient been admitted in last 30 No days? Prior Living Arrangements House Household Members spouse Type of transporation used prior to Drives own vehicle admit Independent with ADL's Yes Is patient alert and oriented? Yes Comment N/A Comment N/A Discharge Plan Home Transportation Arrangement Referrals Initiated None needed Whiteboard Updated in Patient Room with Yes name and ext. # of Talent Development Director Review Status In Process Please Provide Date Initial DC 07/13/24 Assessment Was Performed
--- NOTE | 2024-07-13 15:10 | PM.DS.1 ---
History of Present Illness History of Present Illness Date Patient Seen: 07/13/24 Chief complaint: symptoms like tia Narrative: Per admitting provider, 69-year-old male with past medical history of TIA about 8 years ago presents with concern for strokelike symptoms. Of note around 6 PM today the patient started to notice that he could not comprehend the meaning of the words on his phone. The patient was trying to read the text on his phone but could not understand what was written. The patient however denies any focal weakness or changes in sensation. Denies any facial drooping or slurred speech. This lasted about 30 minutes and resolve on its own. Of note, patient states that about 8 years ago, the patient had exact same symptoms but only lasted 15 minutes then. The patient was concerned and brought himself to the ER for further evaluation. Otherwise the patient denies any fever, chills, nausea, vomiting, diarrhea, chest pain or shortness of breath. In our emergency room, the patient was hemodynamically stable. Labs were relatively benign. CT with and without contrast of the head and neck shows no acute finding. Due to his concern for underlying stroke however ER physician requested admission to observation and obtain a brain MRI in the morning. Discharge Providers Provider Date of admission: 07/13/24 01:08 Discharge Date: 07/13/24 Primary care physician: Sharri Gold MD Consults: 07/13/24 00:54 Consult to Occupational Therapy Evaluate & Treat Comment: Physician Instructions: Evaluate and treat Consult to Physical Therapy Evaluate & Treat Comment: Physician Instructions: Evaluate and Treat Discharge provider: Reese Wallace DO Summary Hospital Course Discharge Diagnosis: Strokelike symptoms with receptive aphasia. Hypomagnesemia. Hospital Course: 69 year old male with PMH of DM, BPH who was admitted with receptive aphasia that had resolved. MR of his brain was negative the following morning and he had no recurrence of symptoms. Telemtry was unremarkable during his stay. Review of prior TTE showed no PFO. Given improvement and unremarkable evaluation he likely had a TIA. With elevated ABCD2 score patient was discharged with 21 days of DAPT and he was discharged on high intensity statin therapy. Recommend possible holter monitor with PCP in the near future. No other changes to home medications are recommended on discharge. Time Spent with Patient Time spent: Greater than 30 minutes Exam Vital Signs (past 8 hours): - 07/13/24 08:00 07/13/24 09:18 07/13/24 09:18 Temperature 97.2 F L Pulse Rate 77 Respiratory Rate 17 Blood Pressure 119/86 Pulse Oximetry 96 07/13/24 12:26 Temperature 98.1 F Pulse Rate 69 Respiratory Rate 16 Blood Pressure 124/76 Pulse Oximetry 98 Oxygen Delivery Method Room Air Oxygen Flow Rate 0 Narrative Exam Narrative: Physical Exam: GENERAL: The patient is not in any acute distressed. Awake and alert. HEENT: Nonicteric sclerae, PERRLA, EOMI. Oropharynx clear. Moist mucous membranes. Conjunctivae appear well perfused. HEART: Regular rate and rhythm without murmurs. No lower extremities edema. LUNGS: Clear to auscultation bilaterally. No wheezing, crackles or rhonchi ABDOMEN: Soft, positive bowel sounds, nontender. SKIN: No rash, no excessive bruising, petechiae, or purpura. NEUROLOGIC: AxO x 3. Cranial nerves II-XII intact without motor/sensory deficit. Objective Labs 07/13/24 03:20 07/13/24 11:20 Labs: Laboratory Results - last 24 hr 07/12/24 07/12/24 07/13/24 21:50 23:33 02:20 WBC 4.3 L RBC 4.06 L Hgb 13.9 Hct 38.6 L MCV 95.1 MCH 34.1 H MCHC 35.9 RDW 13.2 Plt Count 252 Neut % (Auto) 57.9 Lymph % (Auto) 29.3 [place] % (Auto) 9.7 Eos % (Auto) 2.0 Baso % (Auto) 1.1 Neut # (Auto) 2500 Lymph # (Auto) 1300 [place] # (Auto) 400 Eos # (Auto) 100 Baso # (Auto) 0 PT 11.2 INR 1.0 APTT 37 H Sodium 125 L Potassium 4.4 Chloride 92 L Carbon Dioxide 24 BUN 15 Creatinine 0.66 Estimated GFR > 60 BUN/Creatinine Ratio 22.7 H Glucose 170 H Hemoglobin A1c Calcium 9.2 Magnesium 1.5 L Total Bilirubin 0.6 AST 28 ALT 30 Alkaline Phosphatase 96 Total Creatine Kinase 86 Troponin I < 0.012 Total Protein 6.7 Albumin 4.3 Globulin 2.4 Albumin/Globulin Ratio 1.8 Triglycerides Cholesterol LDL Cholesterol, Calc HDL Cholesterol Ur Random Sodium Nasal Screen MRSA (PCR) Not detected U Opiates 300ng/mL cut Negative Ur Oxycodone Screen Negative Urine Methadone Screen Negative Ur Barbiturates Screen Negative U Tricyclic Antidepress Positive H Ur Phencyclidine Scrn Negative Ur Amphetamines Screen Negative U Methamphetamines Scrn Negative Ur MDMA Scrn (Ecstasy) Negative U Benzodiazepines Scrn Negative Urine Cocaine Screen Negative U Marijuana (THC) Screen Negative Urine pH Normal Urine Specific [place] Normal Ur Creatinine Normal 07/13/24 07/13/24 07/13/24 03:20 10:07 11:20 WBC 3.5 L RBC 4.06 L Hgb 13.7 Hct 38.4 L MCV 94.6 MCH 33.6 MCHC 35.6 RDW 13.0 Plt Count 235 Neut % (Auto) 47.5 L Lymph % (Auto) 35.9 [place] % (Auto) 12.4 Eos % (Auto) 3.4 Baso % (Auto) 0.8 Neut # (Auto) 1600 Lymph # (Auto) 1200 [place] # (Auto) 400 Eos # (Auto) 100 Baso # (Auto) 0 PT INR APTT Sodium 124 L 125 L Potassium 3.7 4.8 Chloride 94 L 94 L Carbon Dioxide 23 23 BUN 14 12 Creatinine 0.67 0.62 L Estimated GFR > 60 > 60 BUN/Creatinine Ratio 20.9 19.4 Glucose 112 H 130 H Hemoglobin A1c 5.5 Calcium 8.8 9.1 Magnesium Total Bilirubin AST ALT Alkaline Phosphatase Total Creatine Kinase Troponin I Total Protein Albumin Globulin Albumin/Globulin Ratio Triglycerides 91 Cholesterol 163 LDL Cholesterol, Calc 75 HDL Cholesterol 70 H Ur Random Sodium 42 Nasal Screen MRSA (PCR) U Opiates 300ng/mL cut Ur Oxycodone Screen Urine Methadone Screen Ur Barbiturates Screen U Tricyclic Antidepress Ur Phencyclidine Scrn Ur Amphetamines Screen U Methamphetamines Scrn Ur MDMA Scrn (Ecstasy) U Benzodiazepines Scrn Urine Cocaine Screen U Marijuana (THC) Screen Urine pH Urine Specific [place] Ur Creatinine PFSH Social History household members: spouse Smoking Status: Never smoker Discharge Plan Discharge Plan Patient Disposition: Home Provider Discharge Comment: you were admitted to the hospital with stroke like symptoms, but MRI was thankfully negative for a stroke. This is called a TIA, and is treated like a stroke with medications for stroke prevention including aspirin and plavix for 3 weeks, as well as an increase in your statin therapy. Your sodium level was a bit low, but given it runs low and improvement you are safe to discharge home. Recommend repeat labs with PCP in the next few days ideally to recheck your sodium level. For now try to drink less than 2L of water. Discharge orders & Medications Prescriptions: New aspirin 81 mg tablet,delayed release (DR/EC) 81 mg PO DAILY 90 Days Qty: 90 0RF clopidogrel 75 mg tablet 75 mg PO DAILY 20 Days Qty: 20 0RF atorvastatin 40 mg tablet 40 mg PO BEDTIME 90 Days Qty: 90 0RF Continued atorvastatin 10 mg tablet 10 mg DAILY albuterol sulfate 90 mcg/actuation HFA aerosol inhaler 90 mcg INHALATION PRN PRN (Reason: sob) Patient Comments: [NO ORIGINAL SIG] celecoxib 200 mg capsule 200 mg DAILY cyclobenzaprine 10 mg tablet 10 mg 3XD doxepin 10 mg capsule 10 mg PO DAILY Patient Comments: [NO ORIGINAL SIG] lansoprazole 30 mg capsule,delayed release(DR/EC) 30 mg DAILY insulin glargine [Lantus Solostar U-100 Insulin] 100 unit/mL (3 mL) insulin pen 100 unit SUBCUT DAILY Patient Comments: [NO ORIGINAL SIG] metformin 1,000 mg tablet 1,000 mg PO DAILY mupirocin 2 % ointment 2 ea topical 3XD repaglinide 1 mg tablet 1 mg PO DAILY Patient Comments: [NO ORIGINAL SIG] budesonide-formoterol [Symbicort] 80-4.5 mcg/actuation HFA aerosol inhaler 4.5 inh INHALATION DAILY Patient Comments: [NO ORIGINAL SIG] tamsulosin 0.4 mg capsule 4 mg PO DAILY Patient Comments: [NO ORIGINAL SIG] Follow up/Referrals: Sharri Gold MD [Primary Care Provider] - Visit Report/Discharge Packet Stand Alone Forms: Patient Portal/API, Stroke Signs & Symptoms Discharge Data Primary Care Provider: Sharri Gold Quality VTE Deep Vein Thrombosis/Pulmonary Embolism Present on Admission: No
[2024-07-13] MEDS: CLOPIDOGREL 75 MG TABLET PO (15:41)
[2024-07-13 18:05] LABS: Appearance Urine UA CLEAR; Bilirubin Urine UA NEGATIVE (NEGATIVE); Color Urine UA YELLOW; Glucose Urine UA NEGATIVE (Negative); Ketones Urine UA NEGATIVE (NEGATIVE); Leukocyte Esterase Urine UA NEGATIVE (NEGATIVE); Nitrite Urine UA NEGATIVE (Negative); Occult Blood Urine UA NEGATIVE (Negative); Protein Urine UA NEGATIVE (Negative); Specific Gravity Urine UA <=1.005 (1.000-1.035); Urobilinogen Urine UA 0.2 E.U./dL (0.2); pH Urine UA 6.5 (4.5-8.0)
[2024-07-13 18:11] LABS: Bacteria Urine None Seen; Culture Indicated Urine Cult Not Indicated; RBC Urine None Seen (0-5/HPF); Squamous Epithelial Cell Urine None Seen (0-5/HPF); Urine Volume 10mL (spun); WBC Urine None Seen (0-5/HPF)
[2024-07-17 11:13] LABS: Osmolality Urine 248 mOsmol/kg (.)
== END 2024-07-13 16:15 | disposition home or self-care (01) | DRG 69 ==
LOC: ED 07-13 00:27 → ICU 07-13 08:10 → AC 07-13 11:40 → ICU 07-13 11:40
PROVIDERS: Internal Medicine; Admitting Provider Internal Medicine; Emergency Provider Emergency Medicine; PCP Family Medicine; Referring Provider Emergency Medicine; Visit Provider Internal Medicine
DX: G45.9 Transient cerebral ischemic attack, unspecified (principal); E87.1 Hypo-osmolality and hyponatremia; R47.01 Aphasia; E83.42 Hypomagnesemia; N40.0 Benign prostatic hyperplasia without lower urinary tract symptoms; E11.9 Type 2 diabetes mellitus without complications; Z86.73 Personal history of transient ischemic attack (TIA), and cerebral infarction without residual deficits; Z79.84 Long term (current) use of oral hypoglycemic drugs; Z79.4 Long term (current) use of insulin
CPT/HCPCS: 36415; 70450; 70496; 70498; 70551; 71045; 80048; 80053; 80061; 80305; 81001; 81003; 82550; 82962; 83036; 83735; 83935; 84300; 84484; 85025; 85610; 85730; 87797; 93005; 93010; 96365; 97129; 97162; 97165; 97530; 99285; 99291; J1644; J3475; Q9967

== ENCOUNTER → 2024-07-14 09:05 | Outpatient (CLI) | payer MEDICARE, SELFPAY ==
[2024-07-13 01:54] VITALS: BMI 27.1
[2024-07-14 10:51] LABS: BUN Creatinine Ratio 15.7 (6-22); Blood Urea Nitrogen 11 mg/dL (9-20); Calcium 9.5 mg/dL (8.4-10.2); Carbon Dioxide 22 mmol/L (22-32); Chloride 94 mmol/L (98-107); Estimated Glomerular Filt Rate > 60 mL/min (>60); Glucose 123 mg/dL (80-110); HEMOLYSIS < 15 (0-50); Potassium 4.8 mmol/L (3.4-5.1); Sodium 128 mmol/L (137-145)
== END ==
PROVIDERS: PCP Family Medicine; Referring Provider Internal Medicine; Visit Provider Internal Medicine
DX: E87.1 Hypo-osmolality and hyponatremia (principal)
CPT/HCPCS: 36415; 80048